=== PATIENT | female | born 1965 | race Caucasian/White ===

== ENCOUNTER 2023-11-10 21:33 | Emergency (ER) | payer BC, OTHER ==
[2023-11-10] MEDS ORDERED: CEPHALEXIN MONOHYDRATE 500 MG CAPSULE (UD) ONE (21:52)
[2023-11-10 21:53] VITALS: BP 130/93; PULSE 94; RESP 16; TEMP 98.1; BMI 26.3
[2023-11-10] MEDS: CEPHALEXIN MONOHYDRATE 500 MG CAPSULE (UD) PO ONE (21:53)
== END 2023-11-10 21:58 | disposition home or self-care (01) ==
LOC: FER 21:33
DX: L03.113 Cellulitis of right upper limb (principal)
CPT/HCPCS: 99283-25